=== PATIENT | female | born 1945 | race Caucasian/White ===

== ENCOUNTER → 2017-10-20 09:00 | Outpatient (CLI) | payer MEDICARE, MEDICAID, SELFPAY ==
--- NOTE | 2017-10-20 09:00 | DT_ITS ---
This patient was seen during an EMR downtime October 18, 2017 - October 25, 2017. This patient may have a combination of paper and electronic documentation or all paper documentation. All documentation is viewable within the e-chart portion of [facility] for each patient visit.
--- NOTE | 2017-10-20 10:53 | CDU_ITS ---
Reason For Study: carotid stenosis Rt. Velocities/BP Lt. Velocities/BP Prox CCA 65.7/14.1 cm/sec. Prox CCA 97.3/15.2 cm/sec. Mid CCA 55.1/13.5 cm/sec. Mid CCA 70.4/17.0 cm/sec. Dist CCA 45.1/14.7 cm/sec. Dist CCA 52.8/12.9 cm/sec. Prox ICA 50.4/12.9 cm/sec. Prox ICA 44.3/13.5 cm/sec. Mid ICA 130/36.9 cm/sec. Mid ICA 112/33.3 cm/sec. Dist ICA 134/41.6 cm/sec. Dist ICA 134/34.6 cm/sec. Rt. ICA/CCA = 2.4. Lt. ICA/CCA = 1.9. Prox ECA 56.9/8.79 cm/sec. Prox ECA 56.9/10.6 cm/sec. Rt. Vert. 72.3/20.4 cm/sec. Lt. Vert. 65.1/21.7 cm/sec. Right Extracranial There is intimal thickening but no significant atherosclerotic plaque noted in the right common carotid artery. There is heterogeneous, irregular atherosclerotic plaque noted in the right internal carotid artery. There is intimal thickening but no significant atherosclerotic plaque noted in the right external carotid artery. Antegrade flow is noted in the right vertebral artery. Left Extracranial There is intimal thickening but no significant atherosclerotic plaque noted in the left common carotid artery. There is heterogeneous, irregular atherosclerotic plaque noted in the left internal carotid artery. There is intimal thickening but no significant atherosclerotic plaque noted in the left external carotid artery. Antegrade flow is noted in the left vertebral artery. Procedure Carotid Duplex 28125. The exam was diagnostic. Exam performed in department. Interpretation Summary Moderate (50-69%) stenosis right extracranial internal carotid. Mild (<50%) stenosis left extracranial internal carotid. Flow within the vertebral arteries is antegrade bilaterally. Ordering Physician: Milton Mariano Performed By: Otis Chowdhury RVT
--- NOTE | 2017-10-20 10:54 | ADU_ITS ---
Reason For Study: atherosclerosis with claudication Right Velocities Left Velocities Common Femoral Artery, mid = 221 cm./sec. Common Femoral Artery, mid = 195 cm./sec. Supf Femoral Artery, prox = 149 cm./sec. Supf. Femoral Artery, prox = 177 cm./sec. Supf Femoral Artery, mid = 109 cm./sec. Supf. Femoral Artery, mid = 139 cm./sec. Supf Femoral Artery, dist. = 87.4 cm./sec. Supf. Femoral Artery, dist = 96.9 cm./sec. Profunda Femoral Artery = 127 cm./sec. Profunda Femoral Artery = 182 cm./sec. Popliteal Artery, mid = 82.5 cm./sec. Popliteal Artery, mid = 65.8 cm./sec. Post. Tibial Artery, mid = 74.6 cm./sec. Post Tibial Artery, mid = 100 cm./sec. Post. Tibial Artery, dist = 69.7 cm./sec. Post Tibial Artery, dist. = 73.7 cm./sec. Peroneal Artery, mid = 82.5 cm./sec. Peroneal Artery,dist. = 35.4 cm./sec. Peroneal Artery,dist = 80.5 cm./sec. Ant.Tibial Artery, prox = 73.9 cm./sec. Ant. Tibial Artery, prox = 83.5 cm./sec. Ant Tibial Artery, mid = 95.9 cm./sec. Ant. Tibial Artery, mid = 88.4 cm./sec. Ant. Tibial Artery, distal = 88.0 cm./sec. Ant. Tibial Artery, dist = 109 cm./sec. Procedure The exam was diagnostic. Exam performed in department. Interpretation Summary 1. right leg with mild stenosis [employer] but biphasic throughout. 2. Left leg no stenosis and triphasic flow throughout. Ordering Physician: Milton Mariano Performed By: Otis Chowdhury RVT
--- NOTE | 2017-10-27 11:54 | LEAS ---
Arterial Study - Arterial Study Arterial Study: next Date of scan 10/20/[address] Mariano next History: Patient with claudication hypertension hyperlipidemia diabetes coronary artery disease Interpretation: Right lower extremity pulsatile flow noted at the ankle decreased waveform out through the digits duplex shows biphasic flow both vessels at the ankle with an SILVIA 0.71 of the PT and 0.7 for the DP. Left lower extremity with fairly normal pulsatile flow noted at the ankle slightly decrease out through the digits duplex shows triphasic flow both vessels with an SILVIA 0.95 the PT and 0.96 of the DP. Impression: 1. Right lower extremity mild arterial occlusive disease with an SILVIA 0.74. 2. Left lower extremity with no evidence of significant arterial occlusive disease at rest with an SILVIA 0.96
== END ==
PROVIDERS: Family Provider Family Medicine; PCP Family Medicine; Visit Provider Surgery Vascular Surgery
DX: I70.213 Atherosclerosis of native arteries of extremities with intermittent claudication, bilateral legs (principal); I65.23 Occlusion and stenosis of bilateral carotid arteries
CPT/HCPCS: 93880; 93922; 93925